=== PATIENT | female | born 1965 | race Caucasian/White ===

== ENCOUNTER 2022-08-23 08:25 | Emergency (ER) | payer OTHER ==
[~2022-08-23] VITALS: Ht 157.5 cm; Wt 86.0 kg
[2022-08-23 08:26] VITALS: BP 150/90
[2022-08-23] MEDS ORDERED: CEPH250T PO (10:16)
== END 2022-08-23 10:27 | disposition home or self-care (01) ==
LOC: ER 08:27
DX: S00.86XA Insect bite (nonvenomous) of other part of head, initial encounter (principal); L03.211 Cellulitis of face; Z88.8 Allergy status to other drugs, medicaments and biological substances; Z88.0 Allergy status to penicillin; Z88.1 Allergy status to other antibiotic agents; Z88.2 Allergy status to sulfonamides; Z79.2 Long term (current) use of antibiotics; W57.XXXA Bitten or stung by nonvenomous insect and other nonvenomous arthropods, initial encounter; Y93.89 Activity, other specified; Y92.89 Other specified places as the place of occurrence of the external cause; Y99.8 Other external cause status
CPT/HCPCS: 99283

== ENCOUNTER 2022-08-25 08:28 | Emergency (ER) | payer OTHER ==
[~2022-08-25] VITALS: Ht 157.5 cm; Wt 86.4 kg
[~2022-08-25 08:28] MED LIST: CEPH250T PO
[2022-08-25 08:35] VITALS: BP 127/81
[2022-08-25] MEDS ORDERED: LIDOcaine 1% w/EPI 1:100,000 30ml vial (MDV) IJ ONE (09:35)
[2022-08-25] MEDS ORDERED: ondansetron 4mg rapidly disintigrating tab PO ONE (09:50)
[2022-08-25] MEDS ORDERED: ONDA4TAB12 PO (10:02)
[2022-08-25] MEDS ORDERED: DOXY100T56 PO (10:02)
[2022-08-25] MEDS ORDERED: HYDR-3965 PO (10:02)
== END 2022-08-25 10:19 | disposition home or self-care (01) ==
LOC: ER 08:28
DX: L02.01 Cutaneous abscess of face (principal); Z88.1 Allergy status to other antibiotic agents; Z88.0 Allergy status to penicillin; Z79.2 Long term (current) use of antibiotics; Z79.899 Other long term (current) drug therapy
CPT/HCPCS: 10060; 99284; A6266; A6449

== ENCOUNTER 2022-08-27 09:22 | Emergency (ER) | payer OTHER ==
[~2022-08-27] VITALS: Ht 157.5 cm; Wt 86.4 kg
[~2022-08-27 09:22] MED LIST changes: +DOXY100T56 PO; +HYDR-3965 PO; +ONDA4TAB12 PO
[2022-08-27 09:30] VITALS: BP 110/83
== END 2022-08-27 09:49 | disposition home or self-care (01) ==
LOC: ER 09:22
DX: L02.01 Cutaneous abscess of face (principal); Z48.00 Encounter for change or removal of nonsurgical wound dressing; Z88.8 Allergy status to other drugs, medicaments and biological substances; Z88.2 Allergy status to sulfonamides; Z88.0 Allergy status to penicillin; Z79.899 Other long term (current) drug therapy; Z79.1 Long term (current) use of non-steroidal anti-inflammatories (NSAID); Z79.2 Long term (current) use of antibiotics
CPT/HCPCS: 99281; A6266